=== PATIENT | male | born 1965 | race Caucasian/White ===

== ENCOUNTER 2024-02-25 16:42 | Emergency (ER) | payer OTHER, MEDICAID ==
[~2024-02-25] VITALS: Ht 188 cm; Wt 164.7 kg
[2024-02-25] MEDS ORDERED: METOCLOPRAMIDE HCL 10 MG/2 ML VIAL ONE (17:30)
[2024-02-25] MEDS ORDERED: ACETAMINOPHEN 500 MG TABLET ONE (17:30)
[2024-02-25 17:33] LABS: BASOPHILS % (AUTO) 0.4 % (0.0-2.0); EOSINOPHILS % (AUTO) 0.1 % (0.0-7.0); HEMATOCRIT 39.5 % (36.7-47.1); HEMOGLOBIN 13.5 g/dL (12.5-16.3); LYMPHOCYTES # (AUTO) 0.2 K/uL (0.8-4.8); LYMPHOCYTES % (AUTO) 3.6 % (20.5-51.5); MEAN CORPUSCULAR HEMOGLOBIN 29.3 uug (23.8-33.4); MEAN CORPUSCULAR HGB CONC 34 g/dL (32.5-36.3); MEAN CORPUSCULAR VOLUME 85.9 fL (73.0-96.2); MONOCYTES # (AUTO) 0.5 K/uL (0.1-1.30); MONOCYTES % (AUTO) 9.3 % (0.0-11.0); NEUTROPHILS # (AUTO) 4.3 K/uL (1.8-8.9); NEUTROPHILS % (AUTO) 86.6 % (38.5-71.5); PLATELET COUNT (AUTO) 157 K/uL (152-348)
[2024-02-25] MEDS: METOCLOPRAMIDE HCL 10 MG/2 ML VIAL IV ONE (17:37)
[2024-02-25] MEDS: ACETAMINOPHEN 500 MG TABLET PO ONE (17:37)
[2024-02-25] MEDS: IV NORMAL SALINE 1000 ML BAG IV ONE (17:37)
[2024-02-25] MEDS ORDERED: MORPHINE SULFATE 4 MG/1 ML DISP.SYRIN ONE (17:38)
[2024-02-25 17:40] LABS: CALCIUM 8.2 mg/dL (8.5-10.1); POTASSIUM 3.7 mmol/L (3.5-5.1)
[2024-02-25 17:44] LABS: DIFFERENTIAL COMMENT 1
[2024-02-25] MEDS: MORPHINE SULFATE 4 MG/1 ML DISP.SYRIN IV ONE (17:46)
[2024-02-25 17:55] LABS: BILIRUBIN,DIRECT 0.2 mg/dL (0.0-0.2); BILIRUBIN,TOTAL 0.6 mg/dL (0.2-1.0); TOTAL PROTEIN, SERUM 7.2 g/dL (6.4-8.2)
[2024-02-25 18:08] LABS: ABG BASE EXCESS -0.5 mmol/L (-2.0-3.0); ABG HCO3 21.9 mmol/L (21.0-28.0); ABG PCO2 29.9 mmHg (35.0-48.0); ABG PH 7.482 (7.350-7.450); ABG PO2 69.9 mmHg (83.0-108.0); ABG SITE RIGHT RADIAL; ABG TOTAL HEMOGLOBIN 14.6 G/dL (13.5-17.5); AaDO2 95.3 mmHg; COHb 0.9 % (0.5-1.5); MetHb 0.3 % (0.0-1.5); O2Hb 94.2 % (94.0-98.0)
[2024-02-25 18:19] VITALS: O2SAT 95
[2024-02-25] MEDS ORDERED: DOXY100T2 PO (18:19)
[2024-02-25] MEDS ORDERED: HYDR-3980 PO ×2 (18:19→20:30)
[2024-02-25 18:29] VITALS: O2SAT 96
[2024-02-25] MEDS: IPRATROPIUM BROMIDE 0.5 MG/2.5 ML NEBU NEB ONE (18:29)
[2024-02-25] MEDS: ALBUTEROL SULFATE 2.5 MG/3 ML NEBU NEB ONE (18:29)
[2024-02-25] MEDS ORDERED: DOXYCYCLINE HYCLATE 100 MG TABLET ONE (18:44)
[2024-02-25] MEDS: DOXYCYCLINE HYCLATE 100 MG TABLET PO ONE (18:46)
[2024-02-25] MEDS ORDERED: AZIT250T13 PO (20:30)
[2024-02-25] MEDS ORDERED: AZITHROMYCIN 500MG/ D5W 250ML IVPB **ER PYXIS ONLY IV ONE (20:48)
[2024-02-25] MEDS ORDERED: methylPREDNISolone SOD SUCC 125 MG/2 ML VIAL ONE (20:48)
[2024-02-25] MEDS: methylPREDNISolone SOD SUCC 125 MG/2 ML VIAL IV ONE (21:00)
[2024-02-25] MEDS: AZITHROMYCIN IV 500 MG in IV DEXTROSE 5% 250 ML IV ONE (21:13)
[2024-02-25 23:00] VITALS: BP 171/101; TEMP 97.9; O2SAT 96
== END 2024-02-25 23:00 | disposition home or self-care (01) ==
LOC: ER 16:42
DX: J20.9 Acute bronchitis, unspecified (principal); J18.9 Pneumonia, unspecified organism; J44.1 Chronic obstructive pulmonary disease with (acute) exacerbation; E11.9 Type 2 diabetes mellitus without complications; E66.9 Obesity, unspecified; Z79.4 Long term (current) use of insulin; Z20.822 Contact with and (suspected) exposure to COVID-19; Z87.891 Personal history of nicotine dependence; Z88.2 Allergy status to sulfonamides
CPT/HCPCS: 99285; 96365; 96375; 71250; 96361; 87426; 87804 ×2; 80076; 80048; 83880; 85025; 87040 ×2; 36415; 94640; 82803; 93005; 36600 ×2; J2919; J0456; J2765; J2270; J7040; A4606; A4663; A9150